=== PATIENT | male | born 1950 | race Caucasian/White ===

== ENCOUNTER 2018-04-18 16:35 | Inpatient (IN) | payer SELFPAY ==
[~2018-04-18] VITALS: Ht 177.8 cm; Wt 68.0 kg
[2018-04-18 17:36] LABS: UA SPECIFIC GRAVITY <=1.005 (1.005-1.035); microscopic required? YES; urine erythrocyte TRACE (NEGATIVE)
[2018-04-18 17:38] LABS: PLATELET COUNT 287 x10^3mcL (130-400)
[2018-04-18 17:40] LABS: RED CELL DISTRIBUTION WIDTH 16.2 % (11.5-14.5)
[2018-04-18 17:46] LABS: AMPHETAMINE QUAL UR NONE DETECTED (See below)
[2018-04-18 18:07] LABS: OSMOLALITY SERUM 282 mOsm/kg (278-298)
[2018-04-18 18:20] LABS: ALKALINE PHOSPHATASE 138 U/L (46-116); ALT/SGPT 27 U/L (16-63); AST/SGOT 30 U/L (15-37); BILIRUBIN TOTAL 0.6 mg/dL (0.20-1.00); CALCIUM 7.3 mg/dL (8.5-10.1); CARBON DIOXIDE 26.1 mmol/L (21-32); CHLORIDE SERUM 103 mmol/L (98-107); CREATININE SERUM 0.8 mg/dL (0.7-1.3); FREE T4 0.92 ng/dL (0.76-1.46); GFR1 > 60 mL/min; GLUCOSE SERUM 122 mg/dL (74-106); LIPASE 122 IU/L (73-393); SODIUM SERUM 137 mmol/L (136-145); TOTAL PROTEIN, SERUM 6.2 g/dL (6.4-8.2)
[2018-04-18 18:24] LABS: ALBUMIN 2.8 g/dL (3.4-5.0)
[2018-04-18 18:26] LABS: POTASSIUM SERUM 2.7 mmol/L (3.5-5.1)
[2018-04-18 20:28] LABS: MAGNESIUM 2.3 mg/dL (1.8-2.4); PHOSPHOROUS 2.3 mg/dL (2.5-4.9)
[2018-04-18 20:30] LABS: CHOLESTEROL/HDL RATIO 2.3
[2018-04-18 21:00] VITALS: BP 103/61
[2018-04-18 23:38] VITALS: BP 105/53
[2018-04-19 05:24] VITALS: BP 102/50
[2018-04-19 06:55] LABS: BASOPHIL % 1.9 % (0-2); PLATELET COUNT 284 x10^3mcL (130-400)
[2018-04-19 06:59] LABS: CALCIUM 7.7 mg/dL (8.5-10.1); CARBON DIOXIDE 26.8 mmol/L (21-32); CHLORIDE SERUM 109 mmol/L (98-107); CREATININE SERUM 0.7 mg/dL (0.7-1.3); GFR1 > 60 mL/min; GLUCOSE SERUM 101 mg/dL (74-106); POTASSIUM SERUM 3.4 mmol/L (3.5-5.1); SODIUM SERUM 141 mmol/L (136-145)
[2018-04-19 07:05] LABS: RED CELL DISTRIBUTION WIDTH 16.5 % (11.5-14.5)
[2018-04-19 09:30] VITALS: BP 113/60
[2018-04-19 12:43] VITALS: BP 104/61
[2018-04-19 17:20] VITALS: BP 97/49
[2018-04-19 20:17] VITALS: BP 98/50
[2018-04-20 06:32] VITALS: BP 102/52
[2018-04-20 06:34] LABS: BASOPHIL % 1.6 % (0-2); PLATELET COUNT 317 x10^3mcL (130-400)
[2018-04-20 06:52] LABS: CALCIUM 7.3 mg/dL (8.5-10.1); CARBON DIOXIDE 25.5 mmol/L (21-32); CHLORIDE SERUM 110 mmol/L (98-107); CREATININE SERUM 0.6 mg/dL (0.7-1.3); GFR1 > 60 mL/min; GLUCOSE SERUM 94 mg/dL (74-106); MAGNESIUM 2.3 mg/dL (1.8-2.4); PHOSPHOROUS 2.4 mg/dL (2.5-4.9); POTASSIUM SERUM 4.1 mmol/L (3.5-5.1); SODIUM SERUM 142 mmol/L (136-145)
[2018-04-20 07:04] LABS: RED CELL DISTRIBUTION WIDTH 16.7 % (11.5-14.5)
[2018-04-20 09:34] VITALS: BP 103/55
[2018-04-20 12:36] VITALS: BP 106/58
[2018-04-20 17:09] VITALS: BP 110/60
[2018-04-20 20:28] VITALS: BP 98/55
[2018-04-21 05:59] VITALS: BP 118/58
[2018-04-21 08:20] VITALS: BP 110/56
[2018-04-21 12:27] VITALS: BP 110/65
[2018-04-21 16:55] VITALS: BP 101/55
[2018-04-21 21:29] VITALS: BP 113/62
[2018-04-22 05:48] VITALS: BP 124/62
[2018-04-22 06:32] LABS: BASOPHIL % 1.1 % (0-2); PLATELET COUNT 383 x10^3mcL (130-400)
[2018-04-22 06:37] LABS: RED CELL DISTRIBUTION WIDTH 16.9 % (11.5-14.5)
[2018-04-22 06:51] LABS: CALCIUM 8.5 mg/dL (8.5-10.1); CARBON DIOXIDE 30.4 mmol/L (21-32); CHLORIDE SERUM 105 mmol/L (98-107); CREATININE SERUM 0.8 mg/dL (0.7-1.3); GFR1 > 60 mL/min; GLUCOSE SERUM 95 mg/dL (74-106); MAGNESIUM 2.4 mg/dL (1.8-2.4); PHOSPHOROUS 3.8 mg/dL (2.5-4.9); POTASSIUM SERUM 4.3 mmol/L (3.5-5.1); SODIUM SERUM 142 mmol/L (136-145)
[2018-04-22 09:34] VITALS: BP 119/69
[2018-04-22 13:37] VITALS: BP 101/70
[2018-04-22 18:29] VITALS: BP 106/61
[2018-04-22 21:13] VITALS: BP 111/62
[2018-04-23 05:37] VITALS: BP 101/56
[2018-04-23 06:16] LABS: CALCIUM 8.6 mg/dL (8.5-10.1); CARBON DIOXIDE 31.5 mmol/L (21-32); CHLORIDE SERUM 106 mmol/L (98-107); CREATININE SERUM 0.8 mg/dL (0.7-1.3); GFR1 > 60 mL/min; GLUCOSE SERUM 96 mg/dL (74-106); POTASSIUM SERUM 4.7 mmol/L (3.5-5.1); SODIUM SERUM 140 mmol/L (136-145)
[2018-04-23 06:21] LABS: BASOPHIL % 0.9 % (0-2)
[2018-04-23 06:22] LABS: PLATELET COUNT 406 x10^3mcL (130-400); RED CELL DISTRIBUTION WIDTH 16.7 % (11.5-14.5)
[2018-04-23 13:09] VITALS: BP 121/55
[2018-04-23 18:48] VITALS: BP 107/57
[2018-04-23 21:03] VITALS: BP 103/56
[2018-04-24 06:05] VITALS: BP 105/61
[2018-04-24 09:52] VITALS: BP 109/55
[2018-04-24 14:02] VITALS: BP 109/72
[2018-04-24 17:34] VITALS: BP 121/56
[2018-04-24 21:10] VITALS: BP 105/61
[2018-04-25 05:53] VITALS: BP 111/59
[2018-04-25 09:45] VITALS: BP 97/47
[2018-04-25 12:35] VITALS: BP 129/66
[2018-04-25 15:50] VITALS: BP 115/62
[2018-04-25 20:22] VITALS: BP 101/50
[2018-04-26 05:43] VITALS: BP 98/51
[2018-04-26 09:17] VITALS: BP 102/50
[2018-04-26 13:05] VITALS: BP 116/64
[2018-04-26 17:06] VITALS: BP 102/56
[2018-04-26 20:00] VITALS: BP 96/56
[2018-04-26 21:53] VITALS: Ht 177.8 cm; Wt 68.0 kg
[2018-04-27 05:35] VITALS: BP 95/54
[2018-04-27 10:47] VITALS: BP 115/61
[2018-04-27 13:13] VITALS: BP 101/61
[2018-04-27 17:42] VITALS: BP 112/53
[2018-04-27 22:00] VITALS: BP 101/54
[2018-04-28 08:56] VITALS: BP 99/55
[2018-04-28 18:50] VITALS: BP 101/53
[2018-04-28 22:15] VITALS: BP 104/59
[2018-04-29 05:58] VITALS: BP 98/56
[2018-04-29 08:14] VITALS: BP 106/61
[2018-04-29 16:57] VITALS: BP 104/54
[2018-04-29 19:45] VITALS: BP 111/60
[2018-04-30 05:16] VITALS: BP 100/51
[2018-04-30 07:50] VITALS: BP 113/27
[2018-04-30 12:53] VITALS: BP 114/67
[2018-04-30 21:29] VITALS: BP 116/95
[2018-05-01 05:53] VITALS: BP 99/63
[2018-05-01 10:47] VITALS: BP 100/60
[2018-05-01 18:39] VITALS: BP 98/55
[2018-05-01 21:13] VITALS: BP 96/55
[2018-05-02 05:39] VITALS: BP 101/58
[2018-05-02 18:31] VITALS: BP 119/53
[2018-05-02 21:38] VITALS: BP 104/50
[2018-05-03 05:27] VITALS: BP 101/54
[2018-05-03 09:38] VITALS: BP 121/60
[2018-05-03 18:13] VITALS: BP 116/60
[2018-05-03 22:36] VITALS: BP 99/56
[2018-05-04 05:39] VITALS: BP 97/55
[2018-05-04 09:43] VITALS: BP 101/50
[2018-05-04 16:27] VITALS: BP 105/57
[2018-05-04 20:00] VITALS: BP 109/57
[2018-05-05 05:17] VITALS: BP 103/62
[2018-05-05 09:30] VITALS: BP 110/62
[2018-05-05 14:00] VITALS: BP 105/58
[2018-05-05 17:41] VITALS: BP 102/61
[2018-05-05 20:00] VITALS: BP 95/51
[2018-05-06 05:50] VITALS: BP 110/53
[2018-05-06 10:25] VITALS: BP 110/55
[2018-05-06 17:53] VITALS: BP 107/62
[2018-05-06 20:50] VITALS: BP 99/51
[2018-05-07 05:35] VITALS: BP 110/58
[2018-05-07 09:46] VITALS: BP 106/58
[2018-05-07 13:44] VITALS: BP 141/66
[2018-05-07 17:10] VITALS: BP 120/66
[2018-05-07 20:51] VITALS: BP 98/49
[2018-05-08 05:10] VITALS: BP 100/54
[2018-05-08 09:34] VITALS: BP 101/51
[2018-05-08 16:50] VITALS: BP 107/55
[2018-05-08 20:49] VITALS: BP 117/62
[2018-05-09 05:41] VITALS: BP 93/54
[2018-05-09 09:33] VITALS: BP 104/51
[2018-05-09 13:33] VITALS: BP 109/68
[2018-05-09 18:10] VITALS: BP 112/57
[2018-05-09 20:37] VITALS: BP 97/54
[2018-05-10 05:51] VITALS: BP 103/54
[2018-05-10 10:14] VITALS: BP 107/56
[2018-05-10 17:48] VITALS: BP 102/49
[2018-05-10 21:00] VITALS: BP 107/59
[2018-05-11 05:45] VITALS: BP 107/55
[2018-05-11 06:49] LABS: PLATELET COUNT 314 x10^3mcL (130-400); RED CELL DISTRIBUTION WIDTH 17.1 % (11.5-14.5)
[2018-05-11 06:55] LABS: CALCIUM 8.9 mg/dL (8.5-10.1); CARBON DIOXIDE 29.7 mmol/L (21-32); CHLORIDE SERUM 105 mmol/L (98-107); CREATININE SERUM 0.8 mg/dL (0.7-1.3); GFR1 > 60 mL/min; GLUCOSE SERUM 84 mg/dL (74-106); SODIUM SERUM 140 mmol/L (136-145)
[2018-05-11 09:30] VITALS: BP 115/49
[2018-05-11 17:33] VITALS: BP 118/52
[2018-05-11 21:45] VITALS: BP 111/59
[2018-05-12 06:01] VITALS: BP 104/62
[2018-05-12 09:03] VITALS: BP 101/62
[2018-05-12 17:41] VITALS: BP 110/68
[2018-05-12 21:35] VITALS: BP 103/56
[2018-05-13 05:10] VITALS: BP 105/53
[2018-05-13 09:52] VITALS: BP 114/60
[2018-05-13 12:23] VITALS: BP 105/61
[2018-05-13 17:15] VITALS: BP 111/53
[2018-05-13 21:05] VITALS: BP 101/55
[2018-05-14 05:39] VITALS: BP 103/56
[2018-05-14] MEDS ORDERED: RISPERDAL0.25 MG PO (06:21)
[2018-05-14 06:36] VITALS: BP 103/56
== END 2018-05-14 10:45 | disposition home or self-care (01) | DRG 70 ==
LOC: ED 16:35 → DU 19:36 → MU 19:36 → DU 20:44 → MU 04-27 14:00
PROVIDERS: Emergency Medicine; Family Medicine
DX: G93.41 Metabolic encephalopathy (principal); E43 Unspecified severe protein-calorie malnutrition; F20.1 Disorganized schizophrenia; E87.6 Hypokalemia; E83.39 Other disorders of phosphorus metabolism; Z68.29 Body mass index [BMI] 29.0-29.9, adult; Z59.0 Homelessness; Z72.89 Other problems related to lifestyle
CPT/HCPCS: 83880; 84439; 97110-GP; 97116-GP; 97530-GP; 97535-GP; G0480; J1630; J3475; J3480; J7030; Q0092